=== PATIENT | male | born 1980 | race Caucasian/White ===

== ENCOUNTER 2016-05-17 11:35 | Inpatient (IN) | payer OTHER ==
[2016-05-17 12:39] LABS: BASOPHIL 0.6 % (0-2); EOSINOPHIL 0.6 % (0-5); HCT 41.9 % (42.0-52.0); HGB 15.3 g/dl (13.2-18.0); LYMPHOCYTE 18.3 % (15-48); MCH 31.7 pg (25.0-31.0); MCHC 36.5 g/dL (32.0-36.0); MCV 86.7 fL (78.0-100.0); MONOCYTE 10.4 % (0-12); MPV 11.9 fL (6.0-9.5); NEUTROPHIL 70.1 % (41-80); PLT 159 K/uL (150-400); RBC 4.83 M/uL (4.70-6.00); RDW 13.5 % (11.5-14.0); WBC 10.7 K/uL (4.0-10.5)
[2016-05-17 12:53] LABS: LACTIC ACID 2.2 mmol/L (0.5-2.2)
[2016-05-17 12:58] LABS: ALBUMIN 4.6 g/dL (3.5-5.0); BILIRUBIN - TOTAL 1.1 mg/dL (0.1-1.0); CREATININE 0.7 mg/dL (0.7-1.2); GLOBULIN (CALCULATION) 3.1 g/dL (2.2-4.2); POTASSIUM 3.8 mmol/L (3.5-5.1); TOTAL PROTEIN 7.7 g/dL (6.4-8.3)
[2016-05-17 13:08] LABS: BILIRUBIN NEGATIVE (NEGATIVE); BLOOD NEGATIVE Ery/uL (NEGATIVE); CLARITY CLEAR (CLEAR); COLOR YELLOW (YELLOW); GLUCOSE (U) 3+ mg/dL (NORMAL); KETONE (U) 1+ (SMALL) mg/dL (NEGATIVE); LEUKOCYTES NEGATIVE Leu/uL (NEGATIVE); NITRITE NEGATIVE (NEGATIVE); PROTEIN NEGATIVE (NEGATIVE); SPECIFIC GRAVITY <=1.005 (1.001-1.030); UROBILINOGEN 0.2 mg/dL (0.2-1.0)
[2016-05-18 05:27] LABS: HCT 42.9 % (42.0-52.0); HGB 15.2 g/dl (13.2-18.0); MCH 31.9 pg (25.0-31.0); MCHC 35.4 g/dL (32.0-36.0); MCV 89.9 fL (78.0-100.0); MPV 11.8 fL (6.0-9.5); RBC 4.77 M/uL (4.70-6.00); RDW 13.8 % (11.5-14.0)
[2016-05-18 05:41] LABS: ALBUMIN 4.4 g/dL (3.5-5.0); BILIRUBIN - TOTAL 0.5 mg/dL (0.1-1.0); CREATININE 0.7 mg/dL (0.7-1.2); GLOBULIN (CALCULATION) 3.2 g/dL (2.2-4.2); POTASSIUM 4.5 mmol/L (3.5-5.1); TOTAL PROTEIN 7.6 g/dL (6.4-8.3)
[2016-05-18 05:51] LABS: FT4 (FREE T4) 1.04 ng/dL (0.93-1.70); TSH (THYROID STIM HORMONE) 1.2 uIU/mL (0.270-4.200)
--- NOTE | 2016-05-18 11:07 | NUR ---
05/18/16 0830: PT TRANSFERED TO ICU PER MD ORDER. PTS VITALS STABLE AT THIS TIME, NO DISTRESS NOTED. WILL CONTINUE TO MONITOR PT CLOSELY
[2016-05-18 15:59] LABS: CREATININE 0.6 mg/dL (0.7-1.2); POTASSIUM 3.3 mmol/L (3.5-5.1)
[2016-05-18 21:35] LABS: CREATININE 0.6 mg/dL (0.7-1.2); POTASSIUM 3.6 mmol/L (3.5-5.1)
[2016-05-19 04:32] LABS: HCT 40.7 % (42.0-52.0); HGB 14.1 g/dl (13.2-18.0); MCH 31.7 pg (25.0-31.0); MCHC 34.6 g/dL (32.0-36.0); MCV 91.5 fL (78.0-100.0); RBC 4.45 M/uL (4.70-6.00); RDW 14.2 % (11.5-14.0); WBC 7.4 K/uL (4.0-10.5)
[2016-05-19 05:36] LABS: CREATININE 0.7 mg/dL (0.7-1.2); MAGNESIUM 1.94 mg/dL (1.40-2.10); PHOSPHORUS 3.8 mg/dL (2.7-4.5); POTASSIUM 3.9 mmol/L (3.5-5.1)
[2016-05-19 09:36] LABS: CREATININE 0.6 mg/dL (0.7-1.2); POTASSIUM 3.8 mmol/L (3.5-5.1)
[2016-05-19 14:43] LABS: CREATININE 0.6 mg/dL (0.7-1.2); POTASSIUM 3.3 mmol/L (3.5-5.1)
[2016-05-19 17:39] LABS: CREATININE 0.5 mg/dL (0.7-1.2); POTASSIUM 3.7 mmol/L (3.5-5.1)
[2016-05-19 21:13] LABS: CREATININE 0.7 mg/dL (0.7-1.2); POTASSIUM 3.8 mmol/L (3.5-5.1)
[2016-05-20 01:48] LABS: CREATININE 0.6 mg/dL (0.7-1.2); POTASSIUM 3.5 mmol/L (3.5-5.1)
[2016-05-20 05:04] LABS: HCT 39.2 % (42.0-52.0); HGB 13.6 g/dl (13.2-18.0); MCH 31.8 pg (25.0-31.0); MCHC 34.7 g/dL (32.0-36.0); MCV 91.6 fL (78.0-100.0); RBC 4.28 M/uL (4.70-6.00); RDW 13.9 % (11.5-14.0); WBC 7.3 K/uL (4.0-10.5)
[2016-05-20 05:35] LABS: CREATININE 0.6 mg/dL (0.7-1.2); MAGNESIUM 1.9 mg/dL (1.40-2.10); POTASSIUM 3.4 mmol/L (3.5-5.1)
[2016-05-20 09:31] LABS: CREATININE 0.6 mg/dL (0.7-1.2); POTASSIUM 3.3 mmol/L (3.5-5.1)
--- NOTE | 2016-05-20 15:34 | NUR ---
PT STATED HE WANTED TO LEAVE. PT EDUCATED AND ENCOURAGED TO STAY. DR SWEENEY PAGED TO TALK WITH PT AND PT'S GIRLFRIEND R/T THE RISK OF LEAVING AMA. DR SWEENEY STATED HE COULD NOT GIVE RX FOR INSULIN WITHOUT MONITORING HIM OVERNIGHT TO SEE HOW HIS BLOOD SUGAR TRENDED ON THE CURRENT REGIMEN OF INSULIN HE WAS RECEIVING. PT GIRLFRIEND HAD STATED SHE HAD ALREADY ORDERED HIS LEVEMIR AND THAT THEY WOULD PICK IT UP ON THE WAY HOME. EMOTIONAL SUPPORT AND ADDITIONAL EDUCATION GIVEN TO PT AND ENCOURAGED TO THINK ABOUT IT. 10 MINUTES LATER THE PT STATED HE WANTED TO GO. IV'S WERE DC'D INTACT. DRESSINGS APPLIED, NO BLEEDING NOTED. MONITOR WAS REMOVED. PT GET DRESSED WITH THE HELP OF HIS GIRLFRIEND AND STAFF ESCORTED HIM TO THE EXIT. DR SWEENEY WAS INFORMED BY PHONE OF PT LEAVING.
== END 2016-05-20 15:29 | disposition left against medical advice (07) | DRG 638 ==
LOC: FER 11:35 → FTCU 14:20 → FICU 05-18 08:00
PROVIDERS: Internal Medicine; ADMIT Internal Medicine Nephrology
PROC: 3E0234Z Introduction of Serum, Toxoid and Vaccine into Muscle, Percutaneous Approach (ICD-10-PCS; principal; 2016-05-17)
DX: E13.10 Other specified diabetes mellitus with ketoacidosis without coma (principal); J44.0 Chronic obstructive pulmonary disease with (acute) lower respiratory infection; J44.1 Chronic obstructive pulmonary disease with (acute) exacerbation; F10.239 Alcohol dependence with withdrawal, unspecified; F17.200 Nicotine dependence, unspecified, uncomplicated; I48.91 Unspecified atrial fibrillation; R00.0 Tachycardia, unspecified; I48.0 Paroxysmal atrial fibrillation; J20.9 Acute bronchitis, unspecified; Z91.14 Patient's other noncompliance with medication regimen; Z83.3 Family history of diabetes mellitus; Z23 Encounter for immunization
CPT/HCPCS: 36415; 36600; 71010; 80048; 80053; 81003; 82009; 82803; 82947; 82962; 83036; 83605; 83735; 84100; 84132; 84439; 84443; 85025; 87040; 90686; 93005; 94010; 94640; 96372; J0282; J1170; J1815; J1956; J2060; J2405; J2543; J2930; J3411

== ENCOUNTER 2016-05-23 18:02 | Emergency (ER) | payer OTHER ==
[2016-05-23 20:25] LABS: CREATININE 0.7 mg/dL (0.7-1.2); POTASSIUM 4.1 mmol/L (3.5-5.1)
== END 2016-05-23 21:03 | disposition home or self-care (01) ==
LOC: FER 18:02
PROVIDERS: Emergency Medicine
DX: I80.8 Phlebitis and thrombophlebitis of other sites (principal); F17.210 Nicotine dependence, cigarettes, uncomplicated
CPT/HCPCS: 36415; 80048; 99284

== ENCOUNTER 2016-08-01 12:30 | Emergency (ER) | payer OTHER | END 2016-08-01 15:16 | disposition home or self-care (01) | LOC: FER 12:30 | DX: S00.11XA Contusion of right eyelid and periocular area, initial encounter (principal); L02.91 Cutaneous abscess, unspecified; I10 Essential (primary) hypertension; F17.200 Nicotine dependence, unspecified, uncomplicated; Z79.899 Other long term (current) drug therapy; W10.9XXA Fall (on) (from) unspecified stairs and steps, initial encounter | CPT/HCPCS: 70450; 70486; J1885 ==